=== PATIENT | female | born 1985 | race Caucasian/White ===

== ENCOUNTER 2017-10-29 08:52 | Emergency (ER) | payer BC ==
[2017-10-29] MEDS ORDERED: Lidocaine 1% 30 ML SDV INJECT ONE (09:11)
[2017-10-29] MEDS ORDERED: Bacitracin Oint 1 GM U/D Packet TOP ONE (09:11)
--- NOTE | 2017-10-29 09:13 | EDM.PDOC ---
ED HPI GENERAL MEDICAL PROBLEM - General Chief Complaint: Laceration Stated Complaint: [id number] FELL CUT RIGHT KNEE Time Seen by Provider: 10/29/17 09:03 Source of Information: Reports: Patient, RN, RN Notes Reviewed History Limitations: Reports: No Limitations - History of Present Illness INITIAL COMMENTS - FREE TEXT/NARRATIVE: Patient presents to ER with complaint of cut to right knee. Patient states she fell going up orientation & mobility specialist steps. This occurred at approximately 0200 hours. She has a 4cm. laceration across anterior right knee cap. Tetanus is up to date. Onset: Today Duration: Constant Location: Reports: Lower Extremity, Right Quality: Reports: Ache Severity: Moderate Improves with: Reports: None Worsens with: Reports: None Associated Symptoms: Reports: No Other Symptoms - Related Data Allergies Allergy/AdvReac Type Severity Reaction Status Date / Time No Known Allergies Allergy Verified 10/29/17 09:05 Home Meds: Home Meds . [No Known Home Meds] 10/29/17 [History] Past Medical History - Past Health History Medical/Surgical History: Denies Medical/Surgical History Social & Family History - Tobacco Use Smoking Status *Q: Never Smoker - Recreational Drug Use Recreational Drug Use: No ED ROS GENERAL - Review of Systems Review Of Systems: ROS reveals no pertinent complaints other than HPI. ED EXAM, SKIN/RASH Exam: See Below Exam Limited By: No Limitations General Appearance: Alert, WD/WN, No Apparent Distress Eye Exam: Bilateral Eye: EOMI, Normal Inspection, PERRL Ears: Normal External Exam, Normal Canal, Hearing Grossly Normal, Normal TMs Nose: Normal Inspection, Normal Mucosa, No Blood Throat/Mouth: Normal Inspection, Normal Lips, Normal Teeth, Normal Gums, Normal Oropharynx, Normal Voice, No Airway Compromise Head: Atraumatic, Normocephalic Neck: Normal Inspection, Supple, Non-Tender, Full Range of Motion Respiratory/Chest: No Respiratory Distress, Lungs Clear, Normal Breath Sounds, No Accessory Muscle Use, Chest Non-Tender Cardiovascular: Normal Peripheral Pulses, Regular Rate, Rhythm, No Edema, No Gallop, No JVD, No Murmur, No Rub GI/Abdominal: Normal Bowel Sounds, Soft, Non-Tender, No Organomegaly, No Distention, No Abnormal Bruit, No Mass (Female) Exam: Deferred Rectal (Female) Exam: Deferred Back Exam: Normal Inspection, Full Range of Motion, NT Extremities: Normal Inspection, Normal Range of Motion, Non-Tender, No Pedal Edema, Normal Capillary Refill Neurological: Alert, Oriented, CN II-XII Intact, Normal Cognition, Normal Gait, Normal Reflexes, No Motor/Sensory Deficits Psychiatric: Normal Affect, Normal Mood Skin: Other (4cm laceration horizontal across anterior right patellar area. ) Lymphatic: No Adenopathy ED SKIN PROCEDURES - Laceration/Wound Repair Right Anterior Medial Knee Lac/Wound length In cm: 4 Appearance: Subcutaneous Distal NVT: Neuro & Vascular Intact, No Tendon Injury Anesthetic Type: Local Local Anesthesia - Lidocaine (Xylocaine): 2% Plain Local Anesthetic Volume: Other (10) Skin Prep: Chlorhexidine (Hibiciens) Exploration/Debridement/Repair: Wound Explored, In a Bloodless Field, Explored to Base, Minimally Undermined, No Foreign Material Found Closed with: Sutures Suture Size: 3-0 # of Sutures: 7 Suture Type: Nylon, Interrupted Drain Placement: No Sterile Dressing Applied: Nurse Tetanus Status Addressed: Yes Complications: No Course - Vital Signs Last Recorded V/S: Last Vital Signs Temp 97.8 F 10/29/17 09:03 Pulse 77 10/29/17 09:03 Resp 14 10/29/17 09:03 BP 102/53 L 10/29/17 09:03 Pulse Ox 97 10/29/17 09:03 - Orders/Labs/Meds Meds: Medications Discontinued Medications Generic Name Dose Route Start Last Admin Trade Name Freq PRN Reason Stop Dose Admin Bacitracin 1 dose 10/29/17 09:11 10/29/17 09:44 Bacitracin Oint 1 Gm TOP 10/29/17 09:12 1 dose ONETIME ONE Administration Lidocaine HCl 30 ml 10/29/17 09:11 10/29/17 09:44 Xylocaine-Mpf 1% INJECT 10/29/17 09:12 30 ml ONETIME ONE Administration Departure - Departure Time of Disposition: 09:43 Disposition: Home, Self-Care 01 Condition: Good Clinical Impression: Laceration - Discharge Information *PRESCRIPTION DRUG MONITORING PROGRAM REVIEWED*: No *COPY OF PRESCRIPTION DRUG MONITORING REPORT IN PATIENT RAVI: No Instructions: Laceration Care, Adult, [id number], Stitches, [place], or Adhesive Wound Closure, [id number] Referrals: PCP,Not In Area [Primary Care Provider] - Forms: ED Department Discharge Additional Instructions: Keep area clean and dry. Try not to bend the knee fully as the sutures can pull out Follow up with your primary care facility in 7-10 days to have sutures removed.
== END 2017-10-29 09:52 | disposition home or self-care (01) ==
LOC: DL.ED 08:52
DX: S81.011A Laceration without foreign body, right knee, initial encounter (principal); W10.8XXA Fall (on) (from) other stairs and steps, initial encounter
CPT/HCPCS: 12002; 99282